=== PATIENT | female | born 1965 | race Two or more races ===

== ENCOUNTER 2020-08-02 11:52 | Emergency (ER) | payer MEDICAID ==
[~2020-08-02] VITALS: Ht 167.6 cm; Wt 73.0 kg
[2020-08-02 11:55] VITALS: BP 128/46
[2020-08-02] MEDS ORDERED: BACITRACIN ZINC OINT UDPKT TOP ONE (12:30)
[2020-08-02] MEDS ORDERED: ACETAMINOPHEN 325MG TABLET PO ONE (12:30)
[2020-08-02] MEDS ORDERED: ACET-2708 MT (13:48)
[2020-08-02] MEDS ORDERED: AZIT250T12 MT (13:48)
== END 2020-08-02 14:21 | disposition home or self-care (01) ==
LOC: ER 11:52
DX: S80.812A Abrasion, left lower leg, initial encounter (principal); S80.811A Abrasion, right lower leg, initial encounter; S40.812A Abrasion of left upper arm, initial encounter; S40.811A Abrasion of right upper arm, initial encounter; W55.03XA Scratched by cat, initial encounter; E11.9 Type 2 diabetes mellitus without complications; Y93.89 Activity, other specified; Y92.018 Other place in single-family (private) house as the place of occurrence of the external cause
CPT/HCPCS: 81025; 99283

== ENCOUNTER 2024-10-31 09:01 | Emergency (ER) | payer MEDICAID, OTHER ==
[~2024-10-31] VITALS: Ht 167.6 cm; Wt 80.0 kg
[~2024-10-31 09:01] MED LIST: ACET-2708 MT; AZIT250T12 MT
[2024-10-31 09:04] VITALS: O2SAT 97
[2024-10-31] MEDS: TETANUS, DIPHTHERIA, PERTUSSIS VAC/PF 0.5ML (>10YR OLD) IM ONE (10:31)
[2024-10-31] MEDS: ACETAMINOPHEN 325MG TABLET PO ONE (10:31)
[2024-10-31] MEDS ORDERED: AMOX1TAB16 MT (10:45)
[2024-10-31 12:06] VITALS: BP 122/60; PULSE 68; RESP 18; TEMP 36.8; O2SAT 98
== END 2024-10-31 12:08 | disposition home or self-care (01) ==
LOC: ER 09:01
DX: S81.852A Open bite, left lower leg, initial encounter (principal); S81.851A Open bite, right lower leg, initial encounter; S09.90XA Unspecified injury of head, initial encounter; E11.9 Type 2 diabetes mellitus without complications; Z79.899 Other long term (current) drug therapy; W54.0XXA Bitten by dog, initial encounter; Y93.K1 Activity, walking an animal; Y92.89 Other specified places as the place of occurrence of the external cause; Y99.8 Other external cause status
CPT/HCPCS: 73080; 73552; 73590; 82962; 90471; 90715; 99284; 99285